=== PATIENT | male | born 1955 | race Caucasian/White ===

== ENCOUNTER 2017-04-06 21:40 | Emergency (ER) | payer OTHER ==
[~2017-04-06] VITALS: Ht 180.3 cm; Wt 79.4 kg
[~2017-04-06 21:40] MED LIST: DIOVAN 160 MG160 MG PO; EUCERIN1 CRE EXT; JANUVIA 100MG100 MG PO; MIRALAX17 GM PO; NORVASC 5MG TAB5 MG PO; OXACILLIN SODIUM2 GM IV; PAROXETINE40 MG PO; SIMVASTATIN40 MG PO; TRAZODONE50 MG PO; ULTRAM(MONOGRAP50 MG PO
--- NOTE | 2017-04-06 21:58 | ED PSYCHIATRIC COMPLAINT ---
See Addendum History of Present Illness General Chief Complaint: Psychiatric Related Complaint Stated Complaint: +SI Source: patient, family, old records, EMS, police Exam Limitations: no limitations Vital Signs & Intake/Output Vital Signs & Intake/Output Vital Signs Date Time Temp Pulse Resp B/P B/P Pulse O2 O2 Flow FiO2 Mean Ox Delivery Rate 04/08 0853 97.8 68 20 108/70 04/08 0743 97.7 70 20 110/58 96 Room Air 04/08 0648 97.9 67 16 110/60 96 Room Air 04/08 0645 97.9 67 20 110/60 04/08 0505 77 16 94 Room Air 04/07 2227 98.0 68 18 175/80 99 Room Air 04/07 222 98.0 68 18 155/88 04/07 222 98.0 68 18 155/88 04/07 2224 98.0 68 18 155/88 04/07 1958 98 Room Air 04/07 1958 98.6 63 18 176/83 98 Room Air 04/07 1944 98.6 63 18 176/83 04/07 1700 Room Air 04/07 1642 98.7 78 18 149/69 98 Room Air 04/07 1411 98.3 69 16 148/75 04/07 1405 98.3 69 16 148/75 96 Room Air 04/07 1215 97.9 81 16 151/77 04/07 1210 97.9 81 16 151/77 97 Room Air 04/07 1047 97.7 83 18 156/78 97 04/07 1046 97.7 83 18 156/78 Allergies Coded Allergies: NO KNOWN ALLERGIES (01/30/11) Reconcile Medications PAROXETINE HCL (Paroxetine) 40 MG TABLET 1 TAB PO DAILY MENTAL HEALTH ( Reported) Sitagliptin Phosphate (Januvia) 100 MG TABLET 1 TAB PO DAILY DIABETES ( Reported) TRAZODONE HCL (Trazodone HCl) 50 MG TABLET 2 TAB PO QPM SLEEP (Reported) Valsartan (Diovan) 160 MG TABLET 1 TAB PO DAILY BP (Reported) Triage Nurses Notes Reviewed? yes HPI: Patient was brought in on a police paper for evaluation of a suicidal text that he sent his daughter. Since states that his daughter took the text out of context. He states that he wants to go to [place] to see his other daughter. Patient denies any suicidal or homicidal ideations. Patient states that he has been compliant with his medications. Patient does admit to drinking 4 glasses of wine this evening. Patient denies any hallucinations. (Baljinder ROMERO,Neil Anton) Past History Travel History Traveled to [place] past 21 day No Medical History Any Pertinent Medical History? 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 Refer elsewhere in this and other documents for additional details. There is no other information in these categories that I am aware of which is pertinent to the patient's musculoskeletal treatment or orthopaedic consultation recommendations. According to the patient's report he was asymptomatic and functionally unrestricted with regard to his left upper extremity prior to developing this condition. History of MRSA: No History of VRE: No History of CDIFF: No Surgical History Surgical History: hernia repair-inguinal Psychosocial History Who do you live with Family Services at Home None What is your primary language Macedonian Tobacco Use: Quit >30 days ago ETOH Use: occasional use Illicit Drug Use: denies illicit drug use Family History Family History, If Any: MOTHER FH: colon cancer FH: HTN (hypertension) FATHER FH: HTN (hypertension) BROTHER FH: colon cancer Hx Contributory? No (Neil Gale MD) Review of Systems Review of Systems Constitutional: Reports: no symptoms. EENTM: Reports: no symptoms. Respiratory: Reports: no symptoms. Cardiovascular: Reports: no symptoms. GI: Reports: no symptoms. Genitourinary: Reports: no symptoms. Musculoskeletal: Reports: no symptoms. Skin: Reports: no symptoms. Neurological/Psychological: Reports: no symptoms. Hematologic/Endocrine: Reports: no symptoms. Immunologic/Allergic: Reports: no symptoms. All Other Systems: Reviewed and Negative (Neil Gale MD) Physical Exam Physical Exam General Appearance: well developed/nourished, mild distress Head: atraumatic Eyes: Bilateral: PERRL, EOMI. Ears, Nose, Throat: normal pharynx, normal ENT inspection, hearing grossly normal Neck: normal inspection, supple Respiratory: normal breath sounds Cardiovascular: regular rate/rhythm Gastrointestinal: soft, non-tender Extremities: normal range of motion Neurological/Psychiatric: no motor/sensory deficits, awake, alert, calm, oriented x 3 Appearance/Memory/Insight: appropriate appearance, appropriate insight Behavoir/Eye Contact/Speech: cooperative, normal speech, good eye contact Thoughts/Hallucinations: normal thought pattern, no apparent hallucination Skin: intact, normal color, warm/dry SAD PERSONS Done? CRISIS CONSULT OBTAINED (Baljinder ROMERO,Neil Anton) Progress Differential Diagnosis: drug intoxication, drug overdose, drug withdrawal, electrolyte abnormality Plan of Care: Current Medications Sig/Missy Start time Last Medication Dose Stop Time Status Admin Paroxetine HCl 40 MG DAILY 04/07 1000 UNVr 04/08 (Paxil) 0922 Pioglitazone HCl 30 MG DAILY 04/07 1000 UNVr 04/08 (Actos) 0922 Amlodipine Besylate 10 MG QPM 04/06 2215 UNVr 04/07 (Norvasc) 2225 Losartan Potassium 50 MG QPM 04/06 2215 UNVr 04/07 (Cozaar) 222 Trazodone HCl 100 MG BID 04/06 220 UNVr 04/08 (Desyrel) 0922 Hand-Off Endorsed To: Reinier Bell MD Endorsed Time: 0700 Pending: consult (Neil Gale MD) Hand-Off Endorsed To: Refugio Nicholas MD Endorsed Time: 1899 Pending: other (re-eval) (Reinier Bell MD) Comments: 04/08/2017 6:51:41 AM patient resting comfortably. 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 (Refugio Nicholas MD) Departure Departure Disposition: STILL A PATIENT Condition: Stable Referrals: Kim ROMERO,Ryan Vila (PCP/Family) Departure Forms: Customer Survey General Discharge Information (Neil Gale MD) Departure Clinical Impression Primary Impression: Suicidal ideation Secondary Impressions: Alcohol intoxication (Reinier Bell MD) Departure Comments 04/08/17 10:30 am The patient was signed out to me by Dr. Nicholas. He is been seen evaluated and cleared by crisis. He will follow-up with [facility] on Wednesday. (Refugio Dela Cruz DO) (Reinier Bell MD) 04/07/17 0632: Urine Opiates Screen < 100.00, Methadone Screen < 40, Barbiturate Screen < 60, Ur Phencyclidine Scrn < 6.00, Amphetamines Screen < 100, U Benzodiazepines Scrn < 85, Urine Cocaine Screen < 50, Urine Cannabis Screen < 5.00, Urine Color YEL, Urine Clarity CLEAR, Urine pH 6.0, Ur Specific [place] 1.010, Urine Protein NEG, Urine Ketones NEG, Urine Nitrite NEG, Urine Bilirubin NEG, Urine Urobilinogen 0.2, Ur Leukocyte Esterase NEG, Ur Microscopic EXAM NOT REQUIRED, Urine Hemoglobin NEG, Urine Glucose 100 H 04/06/17 2250: Anion Gap 15, Estimated GFR > 60, BUN/Creatinine Ratio 12.2, Glucose 157 H, Calcium 9.5, Total Bilirubin 0.5, AST 60 H, ALT 85 H, Alkaline Phosphatase 85, Total Protein 7.2, Albumin 4.3, Globulin 2.9, Albumin/Globulin Ratio 1.5, CBC w Diff NO MAN DIFF REQ, RBC 4.90, MCV 94.2 H, MCH 32.1 H, RDW 13.1, MPV 6.9 L, Gran % 53.6, Lymphocytes % 36.2, Monocytes % 9.2, Eosinophils % 0.7, Basophils % 0.3, Absolute Granulocytes 3.4, Absolute Lymphocytes 2.3, Absolute Monocytes 0.6 , Absolute Eosinophils 0, Absolute Basophils 0, PUBS MCHC 34.1, Serum Alcohol 247.0 Hand-Off Endorsed To: Reinier Bell MD Endorsed Time: 0700 Pending: consult (Neli Gale MD) Hand-Off Endorsed To: Yu ROMERO,Refugio Nava Endorsed Time: 190 Pending: other (re-eval) (Reinier Bell MD) Departure Departure Disposition: STILL A PATIENT Condition: Stable Referrals: Kim ROMERO,Ryan Vila (PCP/Family) Departure Forms: Customer Survey General Discharge Information (Neil Gale MD) Departure Clinical Impression Primary Impression: Suicidal ideation Secondary Impressions: Alcohol intoxication (Reinier Bell MD)
[2017-04-06 23:01] LABS: ABSOLUTE BASOPHIL COUNT 0 /CUMM (0.0-0.2); ABSOLUTE EOSINOPHIL COUNT 0 /CUMM (0.0-0.7); ABSOLUTE GRANULOCYTE CT 3.4 /CUMM (1.4-6.5); ABSOLUTE LYMPH COUNT 2.3 /CUMM (1.2-3.4); ABSOLUTE MONOCYTE COUNT 0.6 /CUMM (0.10-0.60); BASOPHIL % 0.3 % (0.0-2.0); EOSINOPHIL % 0.7 % (0-5); GRANULOCYTE % 53.6 % (42.2-75.2); HEMATOCRIT 46.2 % (42-52); MEAN CORPUSCULAR HGB 32.1 PG (27.0-31.0); MEAN CORPUSCULAR HGB CONC 34.1 G/DL (33.0-37.0); MEAN CORPUSCULAR VOLUME 94.2 FL (80.0-94.0); MEAN PLATELET VOLUME 6.9 FL (7.4-10.4); PLATELET COUNT 228 /CUMM (130-400); RBC DISTRIBUTION WIDTH 13.1 % (11.5-14.5); WHITE BLOOD CELL COUNT 6.3 /CUMM (4.8-10.8)
--- NOTE | 2017-04-07 11:11 | ED PSYCH CRISIS CONSULTATION ---
See Addendum Crisis Consult Basic Assessment Date of Consult: 04/07/17 Responsible Person/Accompanied By: self/biba Insurance Authorization: Insurance #1: Insurance name: GUNJAN CROWLEY Phone number: Policy number: [id number] Group number: Authorization number: ED Provider: Patient's ED Provider: Baljinder ROMERO,Neil Anton Primary Care Physician: Patient's PCP: Ryan Alvarez MD PCP's Current Psychiatrist: none Chief Complaint: Psychiatric Related Complaint Patient's Quote: My daughter and I aren't seeing eye to eye Present Illness: Pt is a 62 yo male biba last evening to [place] on a [employer] for sending a "suicidal text" to his daughter. Pt had been drinking etoh (pt reports 3-4 glasses of wine) prior to arrival and had BAL: 241. Pt reports 1 week etoh detox in 2014 and attending IOP in November 2016. Pt reports prescriptions of Paxil and Trazadone by his PCP. Pt denies his text was a suicidal message and states his intent was to notify his daughter sometime soon he plans to leave [place] to move to [place] to be closer to another daughter. Pt denies SI/HI. Denies AH/ VH. No presence of psychosis. Pt reports depression 6/10 and anxiety9/10 and some difficulties with sleep. He reports stressor is financial and having difficulty paying bills especially credit cards. He is worried about collection agencies. He also discussed stress related to difficulty parenting/communicating with his youngest daughter (age 21) who he resides with. Pt reports drinking 2-3 glasses of wine nightly (daughter reports it is 2-3 bottles nightly) and doesn't think he has a reason to stop use. He denies withdrawal symptoms. Pt appears somewhat depressed, lethargic but generally cooperative, pleasant and OX3. Pt denies interest in detox and states he doesn't like IOP because of groups but is interest in 1:1 counseling. Plan for pt to be h/o in ED for r-eval tomorrow morning. Pt is aware and agreeable to plan. Patient's Address: [address] [place] [address] [address] [place] [address] Other Phone Number: Who Do You Live With? Family (21 yo daughter) Family/Informants Interviewed: collateral provided by daughter Mony [phone]. She reports pt is an alcoholic and drinking 2-3 bottles of wine per day. She doesn't think he is taking his paxil or diabetis pills consistently. She thinks he is drinking too much and it is effecting his mood. Allergies - Coded Allergies: NO KNOWN ALLERGIES (01/30/11) Current Medications - Scheduled Medications PAROXETINE HCL (Paroxetine) 40 MG TABLET 1 TAB PO DAILY MENTAL HEALTH #30 ( Reported) Entered as Reported by Courtney Donovan on 05/04/14 1655 Sitagliptin Phosphate (Januvia) 100 MG TABLET 1 TAB PO DAILY DIABETES #90 ( Reported) Entered as Reported by Courtney Donovan on 05/04/14 1654 TRAZODONE HCL (Trazodone HCl) 50 MG TABLET 2 TAB PO QPM SLEEP #180 (Reported) Entered as Reported by Courtney Doonvan on 05/04/14 1654 Valsartan (Diovan) 160 MG TABLET 1 TAB PO DAILY BP #90 (Reported) Entered as Reported by Courtney Donovan on 05/04/14 1654 Laboratory Results: Laboratory Tests 04/07/17 0632: Urine Opiates Screen < 100.00, Methadone Screen < 40, Barbiturate Screen < 60, Ur Phencyclidine Scrn < 6.00, Amphetamines Screen < 100, U Benzodiazepines Scrn < 85, Urine Cocaine Screen < 50, Urine Cannabis Screen < 5.00, Urine Color YEL, Urine Clarity CLEAR, Urine pH 6.0, Ur Specific [place] 1.010, Urine Protein NEG, Urine Ketones NEG, Urine Nitrite NEG, Urine Bilirubin NEG, Urine Urobilinogen 0.2, Ur Leukocyte Esterase NEG, Ur Microscopic EXAM NOT REQUIRED, Urine Hemoglobin NEG, Urine Glucose 100 H 04/06/17 2250: Anion Gap 15, Estimated GFR > 60, BUN/Creatinine Ratio 12.2, Glucose 157 H, Calcium 9.5, Total Bilirubin 0.5, AST 60 H, ALT 85 H, Alkaline Phosphatase 85, Total Protein 7.2, Albumin 4.3, Globulin 2.9, Albumin/Globulin Ratio 1.5, CBC w Diff NO MAN DIFF REQ, RBC 4.90, MCV 94.2 H, MCH 32.1 H, RDW 13.1, MPV 6.9 L, Gran % 53.6, Lymphocytes % 36.2, Monocytes % 9.2, Eosinophils % 0.7, Basophils % 0.3, Absolute Granulocytes 3.4, Absolute Lymphocytes 2.3, Absolute Monocytes 0.6 , Absolute Eosinophils 0, Absolute Basophils 0, PUBS MCHC 34.1, Serum Alcohol 247.0 Past History Past Medical History Neurological: NONE EENT: NONE Cardiovascular: hypertension Respiratory: NONE Gastrointestinal: nonalcoholic steatohepatitis (DIOR) is ( gastritis Hepatic: NONE Renal: NONE Psychiatric: anxiety Endocrine: diabetes Blood Disorders: NONE Cancer(s): 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 Past Surgical History Surgical History: hernia repair-inguinal Psychosocial History Strengths/Capabilities: pt reports interest in 1:1 outpatient tx Physical Limitations (Interventions): none stated Psychiatric Treatment History Psych Treatment Psychiatric Treatment Yes Inpatient Treatment No Outpatient Treatment Yes Location of Treatment [facility] Reason for Treatment etoh use/depression Dates of Treatment November 2016 Response to Treatment unable to complete program due to relapse Diagnosis by History: anxiety, depression and alcohol Substance Use/Abuse History Drug Use/Abuse Substances Used/Abused Yes Substance Used/Abused Alcohol Last Used last night How much used/taken 2-3 glasses wine How often daily Substance Abuse Treatment Substance Abuse Treatment Past Substance Abuse TX Yes Inpatient Treatment Yes Outpatient Treatment Yes Location of Treatment [facility] Reason for Treatment etoh use d/o Response to Treatment pt continues to drink etoh daily 2-3 glasses of wine. Pt reports it is not an issue and doesn't think he has a reason to stop use. Comments: pt denies substance use Current Mental Status Mental Status Orientation: Person, Place, Situation Affect: Sad Speech: WNL Neuro-vegetative: Sleep Disturbance Appearance Appearance- Dress/Hygiene: hospital scrubs; sheets, glasses, eyes/red Behaviors Thought Process: WNL Thought Content: WNL Memory: WNL Insight: Fair SI/HI Risk Assessment Past Suicidal Ideation/Attempts No Current Suicidal Ideation/Att No (he denies) Past Homicidal Ideation/Att: No Current Homicidal Ideation/Attempts No Degree of Intent: None Gravely Disabled: Lack of Insight, Poor Judgment Risk Factors: chronic/serious med cond., high anxiety/distress, substance abuse, male Lethality Ratin PTSD Checklist PTSD Done? patient declined ED Management Sitter: Yes Restraints: No DSM5/PS Stressors/Medical Prob Diagnosis' (DSM 5, Stressors, Medical): etoh use d/o F10.20 unspecified depression F 32.9 finances diabetis Current GAF: 35 Comments: Pt reports recent increase in stress related to financial concerns and worries he is falling behind on paying credit card bills. Pt also reports recent conflict with youngest daughter. Departure Disposition Psych Medical Clearance Date: 04/07/17 Medically Cleared at: 0745 Time Started: 744 Time Ended: 829 Psychiatrist Consulted: Aman Sharma MD Date Disposition Established: 04/07/17 Time Disposition Established: 1030 Plan for Disposition - Modality: Pt will be h/o for reeval per hospital [facility]ER policy Facility: [facility] Rationale for Disposition: Pt on a [facility]ER biba last night due to text message for SI. Pt BAL;241. Pt denies SI/HI. Pt reports text was misinterpreted. Pt reports stress related to relationship with children and finances. Pt denies interest in detox. Pt interested in outpatient individual therapy. Pt will be h/o and re-evaluated in the morning. Referrals Kim ROMERO,Ryan Vila (PCP/Family)
[2017-04-08 12:16] VITALS: BP 128/72
== END 2017-04-08 12:18 ==
LOC: ERH 21:40
PROVIDERS: Emergency Medicine
DX: R45.851 Suicidal ideations (principal); F10.129 Alcohol abuse with intoxication, unspecified
CPT/HCPCS: 80307; 81003; G0463; G0480